=== PATIENT | male | born 1995 | race Caucasian/White ===

== ENCOUNTER 2021-07-11 12:39 | Emergency (ER) | payer MEDICAID ==
[~2021-07-11] VITALS: Ht 182.9 cm; Wt 70.0 kg
[2021-07-11 14:49] LABS: BASOPHILS % 0.5 % (0.0-2.0); EOSINOPHILS % 0.8 % (0.0-5.0); HEMATOCRIT. 42.8 % (42.0-52.0); HEMOGLOBIN. 14.9 g/dL (14.0-18.0); LYMPHOCYTES % 22.9 % (20.0-50.0); MEAN CORPUSCULAR HEMOGLOBIN 29.1 pg (28.0-32.0); MEAN CORPUSCULAR VOLUME 83.8 fL (80.0-94.0); MEAN PLATELET VOLUME 8.3 fl (7.4-10.4); MONOCYTES % 6.4 % (2.0-8.0); NEUTROPHILS % 69.4 % (40.0-76.0); PLATELET 156 x1000/uL (130-400); RED BLOOD CELL COUNT 5.11 mill/uL (4.7-6.1); RED CELL DISTRIBUTION WIDTH 13.7 % (11.6-14.6)
[2021-07-11 14:56] LABS: CHLORIDE 108 mEq/L (98-107)
[2021-07-11 15:15] LABS: CLARITY URINE CLOUDY (CLEAR); COLOR URINE ORANGE (YELLOW); KETONES URINE NEGATIVE (NEGATIVE); LEUKOCYTE ESTERASE URINE 1+ (NEGATIVE); NITRITE URINE NEGATIVE (NEGATIVE); OCCULT BLOOD URINE 3+ (NEGATIVE); PH URINE 6.5 (4.5-8.0); PROTEIN URINE 2+ (NEGATIVE); SPECIFIC GRAVITY URINE 1.028 (1.005-1.030)
[2021-07-11] MEDS ORDERED: CEFTRIAXONE 1 G PREMIX 50 ML IV NR (16:30)
[2021-07-11] MEDS ORDERED: DOXY100T2 MT (18:23)
[2021-07-11 18:45] VITALS: BP 128/81
[2021-07-15 04:12] LABS: NEISSERIA GONORRHOEAE NAA Negative (Negative)
[2021-07-15 19:08] LABS: *HIV-1 RNA BY PCR <40 copies/mL (.)
== END 2021-07-11 18:44 | disposition home or self-care (01) ==
LOC: ER 12:39
DX: R19.7 Diarrhea, unspecified (principal)
CPT/HCPCS: 36415; 74176; 80053; 81003; 85025; 86592; 87491; 87536; 87591; 96365; 99285; J0696; Z7610